=== PATIENT | male | born 2005 | race Caucasian/White ===

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

== ENCOUNTER 2025-05-30 11:01 | Emergency (ER) | payer OTHER, SELFPAY ==
[2025-05-30 11:06] VITALS: BP 123/81; PULSE 65; RESP 20; TEMP 36.4; O2SAT 98
--- NOTE | 2025-05-30 11:30 | DI.RAD_ITS ---
Exam(s) XR CHEST 2V PA LATERAL EXAM: XR CHEST 2V PA LATERAL CLINICAL HISTORY: cough, eval for pneumonia. TECHNIQUE: 2D digital imaging was performed. COMPARISON: No exams were available for comparison FINDINGS: 2 views: Heart size is normal. The mediastinum is not widened. Lungs are clear. No infiltrates nor pleural effusions. IMPRESSION: No acute pulmonary findings. DATA REPOSITORY: RADIATION DOSE DELIVERED:
[2025-05-30 12:02] LABS: COVID-19 PCR Negative (Negative); RSV PCR Negative (Negative)
--- NOTE | 2025-05-30 13:04 | W.ED.GENAD ---
Discharge Plan Disposition Patient Disposition: Home Condition: Good Discharge Details Clinical Impression: Acute otitis media, left Primary Care Provider: Mario Samuels ED Provider: Rafiq Melgar Home Meds and New Rx's Prescriptions: New amoxicillin-pot clavulanate 875-125 mg tablet 1 tab PO BID 7 Days Qty: 14 0RF Discharge Instructions Instructions: Ear Infection ED Additional Instructions: At this time your x-ray does not show any evidence of significant pneumonia. You do have evidence of otitis media in your left ear, which does need antibacterial treatment. Please take the Augmentin as prescribed. Please continue to use the saline nasal rinse. If you have symptomatology that persists past the antibiotic course, there is concern that this may be secondary to a mold component. Please follow-up closely with your primary care provider for reimaging if this occurs. If you notice any worsening of your symptoms, or any new symptoms such as vomiting, diarrhea, fever, chills, shortness of breath, chest pain, numbness, weakness, or fainting , please return immediately to the emergency department for reevaluation. Please follow up with your primary care provider as soon as possible for reassessment and reevaluation. As always, it was a pleasure participating in your medical care today. Referrals: Mario Samuels, [employer] [Primary Care Provider, Medicine] HPI General Date/Time Provider Initiated Documentation: 05/30/25 11:15. HPI Narrative: This is a pleasant 20-year-old male with a past medical history of recurrent peritonsillar abscesses, with final surgical excision, who presents today for evaluation of cough runny nose congestion ear pain. Patient states that about 1-1/2 weeks ago he was working at his work when he came in contact with significant mold exposure. Since then he has been having headache cough intermittent fevers runny nose congestion ear pain. He denies any hemoptysis. He has noted some productive yellow sputum. He does admit to mild facial pressure mild headache. He denies any history of HIV. No IV drug use. He denies any other complaints at this time. He does not smoke Related Data Home Medications ?Medication ?Instructions ?Recorded ?Confirmed amoxicillin 875 mg-potassium 1 tab PO BID 7 days #14 tabs 05/30/25 clavulanate 125 mg tablet Previous Rx's ?Medication ?Instructions ?Recorded amoxicillin 875 mg-potassium 1 tab PO BID 7 days #14 tabs 05/30/25 clavulanate 125 mg tablet Allergies Allergy/AdvReac Type Severity Reaction Status Date / Time No Known Allergies Allergy Verified 05/30/25 11:09 General Stated Complaint: RespSymp ALICJA: 4 Exam Narrative Exam Narrative: 1.Const: Well-nourished, Well-developed, appearing stated age 2.Eyes: PERRL, no conjunctival injection, and symmetrical lids. 3.ENT: Atraumatic external nose and ears. Moist MM. Neck: Symmetric, trachea midline, No thyromegaly. Effusion is present behind the left tympanic membrane, purulent fluid is noted, mild bulging. No severe erythema. Minimal serous fluid behind the right tympanic membrane. 4.CVS: +S1/S2, Peripheral pulses 2+ and equal in all extremities. Brisk capillary refill in all extremities. 5.RESP: Unlabored respiratory effort. Clear to auscultation bilaterally. No wheezes rales or rhonchi 6.GI: Soft, Nontender/Nondistended, No hepatosplenomegaly. No guarding or rebound. 7.MSK: Normocephalic/Atraumatic, Extremities w/o deformity or ttp No cyanosis or clubbing, Normal movement of all extremities 8.Skin: Warm, Dry. No rashes or lesions. 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 Sensation grossly intact, no focal neurologic deficits. 10.Psych: (AAO) x3. Appropriate mood and affect Course Vital Signs Vital signs: Vital Signs Temperature 36.4 C L 05/30/25 11:06 Pulse 65 05/30/25 11:06 Respiratory Rate 20 05/30/25 11:06 Blood Pressure 123/81 05/30/25 11:06 Pulse Oximetry 98 05/30/25 11:06 Temperature 36.4 C L 05/30/25 11:06 Temperature Source Oral 05/30/25 11:06 Pulse 65 05/30/25 11:06 Respiratory Rate 20 05/30/25 11:06 Blood Pressure 123/81 05/30/25 11:06 Blood Pressure Position Sitting 05/30/25 11:06 Pulse Oximetry 98 05/30/25 11:06 Oxygen Delivery Method Room Air 05/30/25 11:06 Oxygen Flow Rate 0 05/30/25 11:06 Pain Level 0 05/30/25 11:06 Lab/Test Results Lab/Test Results: Laboratory Tests Range/Units 05/30/25 11:07 COVID-19 Source Nasopharynx SARS-CoV-2 (PCR) (Negative) Negative Influenza Type A (PCR) (Negative) Negative Influenza Type B (PCR) (Negative) Negative RSV (PCR) (Negative) Negative Medical Decision Making This is a pleasant 20-year-old male with a past medical history of recurrent peritonsillar abscesses, with final surgical excision, who presents today for evaluation of cough runny nose congestion ear pain. Patient states that about 1-1/2 weeks ago he was working at his work when he came in contact with significant mold exposure. Since then he has been having headache cough intermittent fevers runny nose congestion ear pain. He denies any hemoptysis. He has noted some productive yellow sputum. He does admit to mild facial pressure mild headache. He denies any history of HIV. No IV drug use. He denies any other complaints at this time. He does not smoke Physical exam demonstrates mild left-sided otitis media, mild frontal facial tenderness, posterior oropharynx is unremarkable, lungs are clear. COVID flu and RSV testing negative. Will prescribe Augmentin for otitis media. Chest x-ray was reviewed and shows no evidence of large pneumonia. Verbal report from Dr. Wahl and from the patient's mother who is with the patient who called Dr. Wahl herself, reports negative read as well. Actual written report not completed yet. Suspect initial viral etiology leading to the otitis media and postnasal drip, however there is underlying concern for potential fungal component. Will treat with the Augmentin for the otitis media, and if symptoms persist even after treatment patient may require further evaluation and reassurance. Referring for potential fungal component. Discussed red flags for which to return. Discussed signs and symptoms that would warrant immediate return. I have extensively reviewed the treatment plan and discharge instructions with the patient and their family. I have addressed all patient concerns at this time. The patient and family was made aware of what symptoms to monitor for that would warrant a return to the emergency department. Discussed the plan with the patient and family, they demonstrate verbal understanding and agreement with our assessment and plan at this time. The documentation in this chart was dictated using [employer] dictation software. Please excuse any dictation errors. PFSH All Active Problems (Updated 05/30/25 @ 13:05 by Rafiq Melgar DO) Acute otitis media, left (Acute) Night sweats (Acute) Medical History Pharyngitis History of peritonsillar abscess Family History Maternal Grandmother Breast cancer Maternal Grandfather No problems noted. Paternal Grandmother Dementia Paternal Grandfather No problems noted. 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 Sexually active: Yes Do you think of yourself as: decline to answer What is your relationship status?: refused to answer How often do you talk on the phone with friends or family?: three or more times per week How often do you get together with friends or relatives?: twice per week How often do you attend religion or caodaism services?: decline to answer Do you belong to any clubs or organized social groups?: yes Panel score (0-1 are the most socially isolated patients): 2 What type of physical activity do you participate in: bicycling Helmet use: Yes Drive intox or ride w/intox hazmat cdl a driver: No Firearms in home: Yes Firearms unloaded and locked: Yes Do you feel safe at home: Yes Do you feel safe in your relationship?: Yes Would you like helpful sources: No
[2025-05-30 13:19] VITALS: BP 123/81; PULSE 65; RESP 20; TEMP 36.4; O2SAT 98
== END 2025-05-30 13:15 | disposition home or self-care (01) ==
PROVIDERS: Emergency Provider Student in an Organized Health Care Education/Training Program; PCP Nurse Practitioner Family
DX: H66.92 Otitis media, unspecified, left ear (principal); R05.1 Acute cough; R51.9 Headache, unspecified
CPT/HCPCS: 99283 ×2; 87637; 71046